=== PATIENT | male | born 1935 | race Caucasian/White ===

== ENCOUNTER 2021-02-13 18:26 | Observation (INO) ==
[2021-02-13] MEDS ORDERED: Naloxone 0.4 MG/ML INJ IVP PRN (20:06)
[2021-02-13] MEDS ORDERED: *HR* Dextrose 50 % in Water (Vial) 50 ML VIAL IVP PRN (20:37)
[2021-02-13] MEDS ORDERED: D5% in Water 1,000 ML IVC PRN (20:37)
[2021-02-13] MEDS ORDERED: Dextrose Gel 15 GM/37.5 ML TUBE PO PRN ×2 (20:37)
[2021-02-13 20:50] LABS: Basophils % 0.4 %; Eosinophils # 0.3 K/mcL (0.0-0.6); Eosinophils % 4.5 %; Hematocrit 37.3 % (37.5-50.1); Hemoglobin 12.3 g/dL (12.9-16.9); Immature Granulocytes % 0.4 % (0-4); Lymphocytes # 2.2 K/mcL (0.6-4.6); Lymphocytes % 29.4 %; Mean Corpuscular Hemoglobin 31.6 pg (28.0-33.3); Mean Corpuscular Volume 95.9 fL (83.0-100.0); Mean Platelet Volume 11.3 fL (9.4-12.4); Monocytes # 0.6 K/mcL (0.0-1.3); Neutrophils # 4.3 K/mcL (1.6-8.9); Platelet Count 141 K/mcL (140-400); Red Blood Count 3.89 M/mcL (4.19-5.50); Segmented Neutrophils % 57.3 %; White Blood Count 7.5 K/mcL (4.3-11.1)
[2021-02-13 21:00] LABS: INR 1.4; Prothrombin Time 15.7 Seconds (9.4-12.1)
[2021-02-13 21:03] LABS: Activated Partial Thrombo Time 30.5 Seconds (26.0-36.0)
[2021-02-13 21:11] LABS: Alanine Aminotransferase 11 Units/L (7-52); Albumin 3.5 g/dL (3.5-5.7); Albumin/Globulin Ratio 1.1 (1.1-2.2); Alkaline Phosphatase 112 Units/L (34-104); Aspartate Amino Transferase 17 Units/L (13-39); BUN/Creatinine Ratio 13 (6-26); Bilirubin,Total 0.5 mg/dL (0.3-1.0); Blood Urea Nitrogen 31 mg/dL (8-23); Calcium 8.5 mg/dL (8.6-10.3); Carbon Dioxide 24 mEq/L (23-29); Chloride 108 mEq/L (98-107); Globulin 3.3 g/dL (2.4-3.5); Glucose 165 mg/dL (70-105); Osmolality,Calculated 298 (280-300); Potassium 4.2 mEq/L (3.5-5.1); Sodium 139 mEq/L (136-145); Total Protein 6.8 g/dL (6.4-8.9); Troponin I < 0.03 ng/mL (< 0.04); eGFR For African Americans 32 (> 60); eGFR For Non-African Americans 26 (> 60)
[2021-02-13] MEDS: Insulin LISPRO 300 UNITS/3 ML VIAL SUBQ SCH (22:11)
[2021-02-13] MEDS: 0.9 % Sodium Chloride 1,000 ML IVC SCH (22:35)
[2021-02-13] MEDS: Acetaminophen 325 MG TABLET PO PRN (22:55)
[2021-02-14 02:20] LABS: Hematocrit 35.8 % (37.5-50.1); Hemoglobin 11.3 g/dL (12.9-16.9); Mean Corpuscular HGB Conc 31.6 g/dL (31.6-35.5); Mean Corpuscular Hemoglobin 30.6 pg (28.0-33.3); Mean Platelet Volume 11.3 fL (9.4-12.4); Platelet Count 131 K/mcL (140-400); Red Blood Count 3.69 M/mcL (4.19-5.50); White Blood Count 7.2 K/mcL (4.3-11.1)
[2021-02-14 02:45] LABS: Calcium 8.1 mg/dL (8.6-10.3); Potassium 4.3 mEq/L (3.5-5.1)
[2021-02-14 06:14] LABS: Bilirubin,Urine Negative (Negative); Blood,Urine Negative (Negative); Clarity,Urine Clear (Clear); Color,Urine Light-Yellow (Yellow); Glucose,Urine (UA) Normal (Normal); Ketones,Urine Negative (Negative); Leukocyte Esterase,Urine Negative (Negative); Mucus,Urine Few per lpf (None-Few); Nitrite,Urine Negative (Negative); Protein,Urine 50 mg/dL (Neg-Trace); RBC,Urine 0-3 per hpf (0-3); Specific Gravity,Urine 1.015 (1.010-1.025); Urobilinogen,Urine Normal (Normal); WBC,Urine 0-3 per hpf (0-3)
[2021-02-14] MEDS: Insulin LISPRO 300 UNITS/3 ML VIAL SUBQ SCH ×3 (07:40→16:46)
[2021-02-14] MEDS: Acetaminophen 325 MG TABLET PO PRN (20:40)
[2021-02-14] MEDS: 0.9 % Sodium Chloride 1,000 ML IVC SCH (20:40)
[2021-02-15] MEDS: Insulin LISPRO 300 UNITS/3 ML VIAL SUBQ SCH ×3 (07:42→19:43)
[2021-02-15] MEDS ORDERED: *HR* FentaNYL (PF) 100 MCG/2 ML VIAL ONE ×2 (08:20→10:13)
[2021-02-15] MEDS ORDERED: *HR* Propofol 200 MG/20 ML VIAL IVP ONE (08:20)
[2021-02-15] MEDS ORDERED: Lidocaine HCL 4 ML Topical Solution (Laryng-O-Jet Kit Sterile Pak) TP ONE (08:25)
[2021-02-15] MEDS ORDERED: Ondansetron 4 MG/2 ML VIAL ONE (08:25)
[2021-02-15] MEDS ORDERED: *HR* Rocuronium Bromide 50 MG/5 ML VIAL ONE (08:25)
[2021-02-15] MEDS ORDERED: Lidocaine -MPF 2% 2 ML VIAL ONE (08:25)
[2021-02-15] MEDS ORDERED: *HR* OxyCODONE Immed Rel 5 MG TABLET PO PRN (08:46)
[2021-02-15] MEDS ORDERED: *HR* HYDROmorphone PF 0.5 MG/0.5 ML SYRINGE IVP PRN (08:46)
[2021-02-15] MEDS ORDERED: Ondansetron 4 MG/2 ML VIAL IVP PRN ×2 (08:46→12:01)
[2021-02-15] MEDS ORDERED: Metoprolol XL (24 HR) Succ 50 MG TAB.ER.24H PO SCH (09:00)
[2021-02-15] MEDS ORDERED: Aspirin Enteric Coated 325 MG Tablet PO SCH (09:00)
[2021-02-15] MEDS ORDERED: Insulin DETEMIR 100 UNIT/ML X5UNITS SUBQ SCH (09:00)
[2021-02-15] MEDS ORDERED: MIRABEGRON 25 MG PO SCH (09:00)
[2021-02-15] MEDS ORDERED: Acetaminophen IV 1,000 MG/100 ML BAG IVPB ONE (09:03)
[2021-02-15] MEDS ORDERED: *HR* Labetalol 20 MG/4 ML SYRINGE IVP ONE (09:20)
[2021-02-15] MEDS ORDERED: Clindamycin 600 MG/50 ML 600 MG/50 ML IV.SOLN IVPB ONE (09:43)
[2021-02-15] MEDS ORDERED: EPHEDrine 50 MG/ML VIAL ONE (09:50)
[2021-02-15] MEDS ORDERED: *HR* Metoprolol 5 MG/5 ML VIAL IVP ONE (10:18)
[2021-02-15] MEDS ORDERED: Sugammadex Sodium 200 MG/2 ML VIAL IV ONE (10:35)
[2021-02-15] MEDS ORDERED: Dextrose Gel 15 GM/37.5 ML TUBE PO PRN ×2 (12:01)
[2021-02-15] MEDS ORDERED: *HR* Dextrose 50 % in Water (Vial) 50 ML VIAL IVP PRN (12:01)
[2021-02-15] MEDS ORDERED: Naloxone 0.4 MG/ML INJ IVP PRN (12:01)
[2021-02-15] MEDS ORDERED: D5% in Water 1,000 ML IVC PRN (12:01)
[2021-02-15] MEDS: 0.9 % Sodium Chloride 1,000 ML IVC SCH (19:43)
[2021-02-15] MEDS: *HR* OxyCODONE/APAP 5/325 TABLET PO PRN (20:43)
[2021-02-16 03:41] LABS: Hematocrit 29.9 % (37.5-50.1); Mean Corpuscular HGB Conc 33.4 g/dL (31.6-35.5); Mean Corpuscular Hemoglobin 31.9 pg (28.0-33.3); Mean Corpuscular Volume 95.5 fL (83.0-100.0); Mean Platelet Volume 11.3 fL (9.4-12.4); Platelet Count 148 K/mcL (140-400); Red Blood Count 3.13 M/mcL (4.19-5.50)
[2021-02-16 04:01] LABS: Potassium 4.8 mEq/L (3.5-5.1)
[2021-02-16] MEDS: *HR* OxyCODONE/APAP 5/325 TABLET PO PRN ×2 (04:07→08:49)
[2021-02-16] MEDS: Insulin LISPRO 300 UNITS/3 ML VIAL SUBQ SCH ×2 (08:40→12:18)
[2021-02-16] MEDS ORDERED: Insulin DETEMIR 100 UNIT/ML X5UNITS SUBQ SCH (09:00)
[2021-02-16] MEDS ORDERED: Aspirin Enteric Coated 325 MG Tablet PO SCH (09:00)
[2021-02-16] MEDS ORDERED: Metoprolol XL (24 HR) Succ 50 MG TAB.ER.24H PO SCH (09:00)
[2021-02-16 12:19] VITALS: BP 123/73; PULSE 81; TEMP 98.6; O2SAT 93
== END 2021-02-16 14:09 | disposition home or self-care (01) ==
LOC: 2ANU → SUATTDRO 19:17
PROVIDERS: ADMIT Pharmacist; ATTEND Internal Medicine